=== PATIENT | male | born 1985 | race Two or more races ===

== ENCOUNTER 2024-11-04 20:32 | Inpatient (IN) | payer OTHER ==
[~2024-11-04] VITALS: Ht 185.4 cm; Wt 65.5 kg
[2024-11-04] MEDS ORDERED: MORPHINE SULFATE INJ 4 MG/ML DISP.SYRIN ONE (20:58)
[2024-11-04] MEDS ORDERED: ONDANSETRON HCL/PF 4 MG/2 ML VIAL ONE ×2 (20:58→21:55)
[2024-11-04] MEDS ORDERED: PIPERACI/TAZO 3.375GM/D5W 50ML PB IV ONE (21:02)
[2024-11-04] MEDS: PIPERACILLIN /TAZOBACTAM 3.375 G in IV D5W 50 ML IV ONE (21:08)
[2024-11-04] MEDS: MORPHINE SULFATE INJ 2 MG/ML DISP.SYRIN IV ONE (21:08)
[2024-11-04] MEDS: IV NS 0.9% 1,000 ML BAG IV ONE (21:08)
[2024-11-04] MEDS: ONDANSETRON HCL/PF 4 MG/2 ML VIAL IVP ONE (21:09)
[2024-11-04 21:23] LABS: BASOPHILS # (AUTO) 0.1 K/uL (0.0-0.2); BASOPHILS % (AUTO) 0.9 % (0.0-2.0); EOSINOPHILS # (AUTO) 0.1 K/uL (0.0-0.7); EOSINOPHILS % (AUTO) 0.9 % (0.0-6.0); HEMATOCRIT 45 % (39-51); HEMOGLOBIN 15.7 g/dL (13.5-17.5); LYMPHOCYTES # (AUTO) 1.5 K/uL (0.8-4.8); LYMPHOCYTES % (AUTO) 23.3 % (20.0-44.0); MEAN CORPUSCULAR HEMOGLOBIN 34 PG (26.0-33.0); MEAN CORPUSCULAR HGB CONC 35 g/dl (31.0-36.0); MEAN CORPUSCULAR VOLUME 97 fL (80-96); MONOCYTES # (AUTO) 0.4 K/uL (0.1-1.30); MONOCYTES % (AUTO) 6.3 % (2.0-12.0); NEUTROPHILS # (AUTO) 4.4 K/uL (1.8-8.9); NEUTROPHILS % (AUTO) 68.6 % (43.0-81.0); PLATELET COUNT (AUTO) 270 K/uL (150-450); RED BLOOD CELL COUNT(AUTO) 4.67 MIL/uL (4.5-6.0); RED CELL DISTRIBUTION WIDTH 13.2 % (11.5-15.0); WHITE BLOOD COUNT (AUTO) 6.4 K/uL (4.3-11.0)
[2024-11-04 21:36] LABS: INR 1.24 (0.91-1.10); PARTIAL THROMBOPLASTIN TIME 26.1 SEC (24.3-34.3)
[2024-11-04 21:42] LABS: ALANINE AMINOTRANSFERASE 54 U/L (12-78); ALBUMIN 3.6 g/dL (3.4-5.0); ALKALINE PHOSPHATASE 254 U/L (46-116); ASPARTATE AMINOTRANSFERASE 107 U/L (15-37); BILIRUBIN,DIRECT 0.3 mg/dL (0.0-0.2); BILIRUBIN,TOTAL 0.9 mg/dL (0.2-1.0); CALCIUM, SERUM 8.7 mg/dL (8.5-10.1); CARBON DIOXIDE 26 mmol/L (21-32); CHLORIDE 102 mmol/L (98-107); CREATININE 1.2 mg/dL (0.6-1.3); GLUCOSE 133 mg/dL (74-106); POTASSIUM 3.1 mmol/L (3.5-5.1); SODIUM SERUM 143 mmol/L (136-145); TOTAL PROTEIN, SERUM 8.5 g/dL (6.4-8.2); UREA NITROGEN, BLOOD 6 mg/dL (7-18)
[2024-11-04 21:49] LABS: LACTIC ACID 4.5 mmol/L (0.4-2.0)
[2024-11-04] MEDS ORDERED: HYDROMORPHONE 1 MG/1 ML DISP.SYRIN ONE (21:55)
[2024-11-04] MEDS: HYDROMORPHONE 1 MG/1 ML DISP.SYRIN IV ONE (22:00)
[2024-11-04] MEDS: ONDANSETRON HCL/PF - ER 4 MG/2 ML VIAL IV ONE (22:00)
[2024-11-04] MEDS ORDERED: IOHEXOL-300 100 ML VIAL IV ONE (22:05)
[2024-11-04] MEDS ORDERED: IV NS 0.9% 250 ML IV ONE (22:05)
[2024-11-04] MEDS ORDERED: POTASSIUM CHLORIDE 20 MEQ TAB.PRT.SR PO ONE (23:49)
[2024-11-04] MEDS: POTASSIUM CHLORIDE 20 MEQ TAB.PRT.SR PO ONE (23:55)
[2024-11-05] MEDS ORDERED: ACETAMINOPHEN 325 MG TABLET PO PRN (01:30)
[2024-11-05] MEDS ORDERED: MAG HYDROX/AL HYDROX/SIMETH 30 ML UDC PO PRN (01:30)
[2024-11-05 02:30] VITALS: BP 139/97; TEMP 97.5; O2SAT 100
[2024-11-05] MEDS: MORPHINE SULFATE INJ 2 MG/ML DISP.SYRIN IV PRN (02:39)
[2024-11-05] MEDS ORDERED: PIPERACI/TAZO 3.375GM/D5W 50ML PB IV ONE (02:44)
[2024-11-05] MEDS: IV NS 0.9% 1,000 ML IV PRN (02:45)
[2024-11-05] MEDS: ZOSYN IVPB 3.375 G in IV D5W 50ml IV ONE (02:56)
[2024-11-05] MEDS: ONDANSETRON HCL/PF 4 MG/2 ML VIAL IVP PRN (03:40)
[2024-11-05] MEDS ORDERED: PANT40TA49 PO (06:34)
[2024-11-05] MEDS ORDERED: GABA300C PO (06:34)
[2024-11-05] MEDS ORDERED: NITR100C6 PO (06:34)
[2024-11-05] MEDS ORDERED: LISI10TA29 PO (06:34)
[2024-11-05] MEDS: MAGNESIUM HYDROXIDE 30 ML UDC PO PRN (06:39)
[2024-11-05 06:47] LABS: APPEARANCE,URINE CLEAR (CLEAR); BILIRUBIN,URINE 1+ (NEGATIVE); BLOOD, URINE NEGATIVE Ery/uL (NEGATIVE); COLOR,URINE YELLOW (YELLOW); KETONES,URINE TRACE mg/dL (NEGATIVE); LEUKOCYTE ESTERASE ,URINE NEGATIVE (NEGATIVE); NITRITE, URINE NEGATIVE (NEGATIVE); PROTEIN,URINE 2+ mg/dl (NEGATIVE); UGLUCOSE NEGATIVE (NEGATIVE); UROBILINOGEN,URINE 0.2 EU/dL (0.2)
[2024-11-05 06:49] LABS: ADD URINE CULTURE NO; BACTERIA,URINE Rare /HPF (None Seen); SQUAMOUS EPITHELIAL CELL,UR Moderate /HPF (None Seen); WBC,URINE 0-2 /HPF (0-3)
[2024-11-05 07:14] LABS: BASOPHILS # (AUTO) 0.1 K/uL (0.0-0.2); EOSINOPHILS % (AUTO) 0.2 % (0.0-6.0); HEMATOCRIT 40 % (39-51); HEMOGLOBIN 13.9 g/dL (13.5-17.5); LYMPHOCYTES # (AUTO) 1.4 K/uL (0.8-4.8); LYMPHOCYTES % (AUTO) 26.3 % (20.0-44.0); MEAN CORPUSCULAR HEMOGLOBIN 34 PG (26.0-33.0); MEAN CORPUSCULAR HGB CONC 35 g/dl (31.0-36.0); MEAN CORPUSCULAR VOLUME 98 fL (80-96); MONOCYTES # (AUTO) 0.3 K/uL (0.1-1.30); MONOCYTES % (AUTO) 6.3 % (2.0-12.0); NEUTROPHILS # (AUTO) 3.6 K/uL (1.8-8.9); NEUTROPHILS % (AUTO) 66.2 % (43.0-81.0); PLATELET COUNT (AUTO) 235 K/uL (150-450); RED BLOOD CELL COUNT(AUTO) 4.06 MIL/uL (4.5-6.0); WHITE BLOOD COUNT (AUTO) 5.4 K/uL (4.3-11.0)
[2024-11-05 07:27] LABS: CALCIUM, SERUM 8.2 mg/dL (8.5-10.1); CREATININE 1.1 mg/dL (0.6-1.3); MAGNESIUM 1.6 mg/dL (1.8-2.4); PHOSPHORUS 4.2 mg/dL (2.5-4.9); POTASSIUM 2.9 mmol/L (3.5-5.1)
[2024-11-05 07:31] LABS: LACTIC ACID 1.9 mmol/L (0.4-2.0)
[2024-11-05 08:00] VITALS: BP 138/98; TEMP 98.6; O2SAT 99
[2024-11-05] MEDS ORDERED: ONDA8TAB13 PO (08:21)
[2024-11-05] MEDS ORDERED: TRAM50TA2 PO (08:21)
[2024-11-05] MEDS ORDERED: CYAN-51 PO (08:21)
[2024-11-05] MEDS ORDERED: FOLI0.8T3 PO (08:21)
[2024-11-05] MEDS ORDERED: CABENUVA IM (08:27)
[2024-11-05] MEDS: ZOSYN IVPB 3.375 G in IV D5W 50ml IV SCH (08:59)
[2024-11-05] MEDS: PANTOPRAZOLE 40 MG VIAL IV SCH (08:59)
[2024-11-05] MEDS: POTASSIUM CHLORIDE 20 MEQ TAB.PRT.SR PO SCH (10:25)
[2024-11-05] MEDS: MAGNESIUM OXIDE 400 MG TABLET PO ONE (10:26)
[2024-11-05] MEDS ORDERED: POLYETHYLENE GLYCOL 3350 17 GM POWD.PACK PO PRN (13:30)
[2024-11-05] MEDS: SENNOSIDES/DOCUSATE SODIUM 1 TAB TABLET PO SCH (13:40)
[2024-11-05 16:00] VITALS: BP 153/98; TEMP 98.1; O2SAT 100
[2024-11-05] MEDS: METOCLOPRAMIDE HCL 10 MG/2 ML VIAL IV PRN (20:19)
[2024-11-05 20:54] VITALS: BP 141/106; TEMP 99; O2SAT 99
[2024-11-05 21:10] VITALS: BP 141/106; TEMP 99; O2SAT 99
[2024-11-06 07:34] LABS: BASOPHILS % (AUTO) 0.6 % (0.0-2.0); EOSINOPHILS # (AUTO) 0.1 K/uL (0.0-0.7); EOSINOPHILS % (AUTO) 1.1 % (0.0-6.0); HEMATOCRIT 37 % (39-51); HEMOGLOBIN 12.6 g/dL (13.5-17.5); LYMPHOCYTES # (AUTO) 2.7 K/uL (0.8-4.8); MEAN CORPUSCULAR HEMOGLOBIN 33 PG (26.0-33.0); MEAN CORPUSCULAR HGB CONC 34 g/dl (31.0-36.0); MEAN CORPUSCULAR VOLUME 99 fL (80-96); MONOCYTES # (AUTO) 0.4 K/uL (0.1-1.30); MONOCYTES % (AUTO) 7.6 % (2.0-12.0); NEUTROPHILS # (AUTO) 2.6 K/uL (1.8-8.9); NEUTROPHILS % (AUTO) 44.7 % (43.0-81.0); PLATELET COUNT (AUTO) 200 K/uL (150-450); RED BLOOD CELL COUNT(AUTO) 3.77 MIL/uL (4.5-6.0); WHITE BLOOD COUNT (AUTO) 5.9 K/uL (4.3-11.0)
[2024-11-06 07:54] LABS: CALCIUM, SERUM 7.9 mg/dL (8.5-10.1); CREATININE 0.9 mg/dL (0.6-1.3); MAGNESIUM 1.7 mg/dL (1.8-2.4); PHOSPHORUS 3.5 mg/dL (2.5-4.9)
[2024-11-06 08:00] VITALS: BP 129/97; TEMP 98.4; O2SAT 98
[2024-11-06 08:27] LABS: POTASSIUM 2.8 mmol/L (3.5-5.1)
[2024-11-06] MEDS: PANTOPRAZOLE 40 MG TABLET.DR PO SCH (08:50)
[2024-11-06] MEDS: POTASSIUM CHLORIDE 20 MEQ TAB.PRT.SR PO SCH (08:53)
[2024-11-06] MEDS: MAGNESIUM OXIDE 400 MG TABLET PO ONE (09:44)
[2024-11-06] MEDS ORDERED: TRAMADOL HCL 50 MG TABLET PO PRN (10:00)
[2024-11-06] MEDS: GABAPENTIN 300 MG CAPSULE PO SCH (12:22)
[2024-11-06] MEDS ORDERED: CIPR-262 PO (12:39)
[2024-11-06] MEDS ORDERED: METR500T PO (12:39)
[2024-11-06] MEDS ORDERED: FAMO-131 PO (12:39)
[2024-11-07] MEDS ORDERED: LISINOPRIL (10MG) 10 MG TABLET PO SCH (09:00)
[2024-11-07] MEDS ORDERED: FOLIC ACID 1 MG TABLET PO SCH (09:00)
[2024-11-07] MEDS ORDERED: CYANOCOBALAMIN 500 MCG TABLET PO SCH (09:00)
== END 2024-11-06 15:04 | disposition home or self-care (01) | DRG 720 ==
LOC: ER 20:34 → MED 11-05 01:52
PROVIDERS: ADMIT Nurse Practitioner Acute Care; ATTEND Nurse Practitioner Acute Care
DX: A41.9 Sepsis, unspecified organism (principal); E87.20 Acidosis, unspecified; E87.0 Hyperosmolality and hypernatremia; E86.0 Dehydration; E87.6 Hypokalemia; R00.0 Tachycardia, unspecified; K52.9 Noninfective gastroenteritis and colitis, unspecified; G89.4 Chronic pain syndrome; G62.9 Polyneuropathy, unspecified
CPT/HCPCS: 36415; 71045-TC; 76705-TC; 80048-TC; 80076-TC; 81001; 83605-TC; 83690-TC; 83735-TC; 84100-TC; 85025-TC; 85730-TC; 87040-TC; 87086-TC; A4223; G0378; J1171; J2270; J2405; J2470; J2543; J2765; J7030; J7050; J7060; Q9967